=== PATIENT | male | born 1975 | race Caucasian/White ===

== ENCOUNTER 2018-08-17 16:30 | Emergency (ER) | payer OTHER ==
[2018-08-17 17:05] LABS: Basophils % 1.4 % (0-1.3); Eosinophils % 0.9 % (0-4.4); Lymphocytes % 31.4 % (15.3-44.8); MPV 8.4 fL (7.6-11.3); Monocytes % 6.3 % (3.3-12.3); RBC Red Blood Cell Count 5.35 M/uL (4.33-5.43)
[2018-08-17 17:09] LABS: Protime INR 0.97
[2018-08-17] MEDS ORDERED: ONDANSETRON 4 MG (ODT) TAB ONE (17:13)
[2018-08-17] MEDS ORDERED: ACETAMINOPHEN 500 MG TAB ONE (17:13)
[2018-08-17] MEDS ORDERED: ONDANSETRON 4 MG/2 ML VIAL ONE (17:33)
[2018-08-17] MEDS ORDERED: MECLIZINE HCL 12.5 MG TAB ONE (17:33)
[2018-08-17 17:36] LABS: Magnesium 2.3 mg/dL (1.8-2.4)
[2018-08-17 17:50] LABS: Potassium 2.9 mmol/L (3.5-5.1)
[2018-08-17 17:55] LABS: Blood Morphology Comment NOT SEEN (NOT SEEN); Platelet Estimate ADEQ
--- NOTE | 2018-08-17 18:03 | RAD REPORT ---
EXAM DESCRIPTION: RAD - Chest Single View - 08/17/2018 5:34 pm CLINICAL HISTORY: Dyspnea COMPARISON: None. TECHNIQUE: AP portable chest image was obtained 1730 hours . FINDINGS: No focal lung parenchymal process. Interstitial markings are minimally prominent believed to be baseline. No failure or volume overload. Heart and vasculature are normal. No measurable pleura l effusion and no pneumothorax. No acute bony abnormality seen. No acute aortic findings suspected. IMPRESSION: No acute cardiopulmonary process.
[2018-08-17] MEDS ORDERED: POTASSIUM 25 MEQ EFFERV TAB ONE (18:29)
[2018-08-17] MEDS ORDERED: NS KCL 20MEQ 1,000 ML IV ONE (18:30)
--- NOTE | 2018-08-17 19:36 | EDPHYS ---
Physician Documentation [facility] Name: David Moore Age: 43 yrs Sex: Male : 1975 Arrival Date: 08/17/2018 Time: 16:32 Bed 4 Private MD: ED Physician Mata Cassidy HPI: 08/17 17:15 This 43 yrs old Male presents to ER via Wheelchair with complaints of jr8 Dizziness, Nausea. 17:15 The patient presents with dizziness. Onset: The symptoms/episode began/occurred jr8 acutely, today. Context: occurred at an unknown location, occurred while the patient was standing. Modifying factors: The symptoms are alleviated by nothing, the symptoms are aggravated by changing position. Associated signs and symptoms: Pertinent positives: nausea, vomiting. Severity of symptoms: At their worst the symptoms were moderate in the emergency department the symptoms are unchanged. Patient's baseline: Neuro: alert and fully oriented, Motor: no deficits, Ambulation: walks without assistance, Speech: normal. The patient has not experienced similar symptoms in the past. The patient has been recently seen by a physician:. Patient stated that he was recently put on zithromax for inner ear infection along with prednisone. Stated that he had sudden onset dizziness followed by n/v today. Denies any other symptoms at this time . Historical: - Allergies: 16:40 No Known Allergies; aa5 - Home Meds: 16:40 Valtrex Oral [Active]; aa5 - PMHx: 16:40 Herpes; aa5 - PSHx: 16:40 None; aa5 - Immunization history:: Adult Immunizations up to date. - Ebola Screening: : No symptoms or risks identified at this time. - Social history:: Smoking status: Smoking status: Patient/guardian denies using tobacco. ROS: 17:15 Eyes: Negative for injury, pain, redness, and discharge, ENT: Negative for injury, jr8 pain, and discharge, Neck: Negative for injury, pain, and swelling, Cardiovascular: Negative for chest pain, palpitations, and edema, Respiratory: Negative for shortness of breath, cough, wheezing, and pleuritic chest pain, Back: Negative for injury and pain, MS/Extremity: Negative for injury and deformity, Skin: Negative for injury, rash, and discoloration. 17:15 Abdomen/GI: Positive for nausea and vomiting, Negative for abdominal pain, diarrhea, constipation, abdominal cramps, abdominal distension, anorexia, dysphagia, hematemesis, black/tarry stool, rectal pain, rectal bleeding, bowel incontinence, flatulence. 17:15 Neuro: Positive for dizziness. Exam: 17:15 Eyes: Pupils equal round and reactive to light, extra-ocular motions intact. Lids and jr8 lashes normal. Conjunctiva and sclera are non-icteric and not injected. Cornea within normal limits. Periorbital areas with no swelling, redness, or edema. ENT: Nares patent. No nasal discharge, no septal abnormalities noted. Tympanic membranes are normal and external auditory canals are clear. Oropharynx with no redness, swelling, or masses, exudates, or evidence of obstruction, uvula midline. Mucous membranes moist. Neck: Trachea midline, no thyromegaly or masses palpated, and no cervical lymphadenopathy. Supple, full range of motion without nuchal rigidity, or vertebral point tenderness. No Meningismus. Cardiovascular: Regular rate and rhythm with a normal S1 and S2. No gallops, murmurs, or rubs. Normal PMI, no JVD. No pulse deficits. Respiratory: Lungs have equal breath sounds bilaterally, clear to auscultation and percussion. No rales, rhonchi or wheezes noted. No increased work of breathing, no retractions or nasal flaring. Abdomen/GI: Soft, non-tender, with normal bowel sounds. No distension or tympany. No guarding or rebound. No evidence of tenderness throughout. Back: No spinal tenderness. No costovertebral tenderness. Full range of motion. Skin: Warm, dry with normal turgor. Normal color with no rashes, no lesions, and no evidence of cellulitis. MS/ Extremity: Pulses equal, no cyanosis. Neurovascular intact. Full, normal range of motion. Neuro: Awake and alert, GCS 15, oriented to person, place, time, and situation. Cranial nerves II-XII grossly intact. Motor strength 5/5 in all extremities. Sensory grossly intact. Cerebellar exam normal. Normal gait. Vital Signs: 16:40 BP 156 / 90; Pulse 77; Resp 18; Temp 97.5(O); Pulse Ox 100% on R/A; Weight 95.25 kg; lp1 Height 6 ft. 0 in. (182.88 cm); Pain 0/10; 17:10 BP 153 / 99; Pulse 66; Resp 16 S; Pulse Ox 98% on R/A; Pain 0/10; aa5 18:30 BP 142 / 94; Pulse 68; Resp 16 S; Pulse Ox 100% on R/A; Pain 0/10; aa5 19:08 BP 154 / 98; Pulse 70; Resp 16; Pulse Ox 100% ; Pain 0/10; tl1 20:21 BP 131 / 93; Pulse 71; Resp 17; Temp 97.8; Pulse Ox 99% ; Pain 0/10; tl1 16:40 Body Mass Index 28.48 (95.25 kg, 182.88 cm) lp1 16:40 Carlyle (FACES) lp1 MDM: 16:41 Patient medically screened. 8 19:35 Data reviewed: vital signs, nurses notes, lab test result(s), EKG, radiologic studies, jr8 plain films. Data interpreted: Pulse oximetry: on room air is 100 %. Interpretation: normal. Counseling: I had a detailed discussion with the patient and/or guardian regarding: the historical points, exam findings, and any diagnostic results supporting the discharge/admit diagnosis, lab results, radiology results, the need for outpatient follow up, a family practitioner, to return to the emergency department if symptoms worsen or persist or if there are any questions or concerns that arise at home. Response to treatment: the patient's symptoms have markedly improved after treatment, patient is well hydrated. 08/17 16:45 Order name: PT-INR [facility] 08/17 16:45 Order name: Basic Metabolic Panel [facility] 08/17 16:45 Order name: CBC with Diff [facility] 08/17 16:45 Order name: Magnesium [facility] 08/17 17:18 Order name: CBC with Automated Diff; Complete Time: 18:04 EDMS 08/17 17:18 Order name: Protime (+INR); Complete Time: 17:24 EDMS 08/17 17:17 Order name: XRAY Chest (1 view) [facility] 08/17 17:50 Order name: Basic Metabolic Panel; Complete Time: 17:52 EDMS 08/17 17:50 Order name: Magnesium; Complete Time: 17:52 EDMS 08/17 17:56 Order name: Manual Differential; Complete Time: 18:04 EDMS 08/17 18:04 Order name: RAD; Complete Time: 18:15 EDMS 08/17 16:45 Order name: EKG; Complete Time: 16:46 [facility] 08/17 16:45 Order name: Cardiac monitoring; Complete Time: 16:53 8 08/17 16:45 Order name: EKG - Nurse/Tech; Complete Time: 16:53 8 08/17 16:45 Order name: IV Saline Lock; Complete Time: 16:53 [facility] 08/17 16:45 Order name: Labs collected and sent; Complete Time: 16:53 8 08/17 16:45 Order name: O2 Per Protocol; Complete Time: 16:53 8 08/17 16:45 Order name: O2 Sat Monitoring; Complete Time: 16:53 Administered Medications: 17:10 Drug: Meclizine 25 mg Route: PO; aa5 18:15 Follow up: Response: No adverse reaction aa5 17:10 Drug: Zofran 4 mg Route: IVP; Site: left antecubital; aa5 17:15 Follow up: Response: No adverse reaction aa5 17:27 Not Given (Physician Discretion): Valium 2 mg IVP once aa5 18:15 Drug: Potassium Chloride 40 mEq Route: PO; aa5 20:23 Follow up: Response: No adverse reaction; No change in condition tl1 18:20 Drug: NS 0.9% with KCl 20 mEq/L 1000 ml Route: IV; Rate: 500 ml/hr; Site: left aa5 antecubital; 20:23 Follow up: IV Status: Completed infusion; IV Intake: 1000ml tl1 Disposition: 08/17/18 19:36 Discharged to Home. Impression: Hypokalemia, Vertigo. - Condition is Stable. - Discharge Instructions: Potassium Content of Foods, Vertigo, Hypokalemia. - Prescriptions for Zofran ODT 4 mg Oral tablet,disintegrating - place 1 tablet by TRANSLINGUAL route every 6 hours As needed; 12 tablet. Meclizine 25 mg Oral Tablet - take 1 tablet by ORAL route every 8 hours As needed; 30 tablet. - Medication Reconciliation Form, Thank You Letter, Antibiotic Education, Prescription Opioid Use form. - Follow up: Private Physician; When: 2 - 3 days; Reason: Recheck today's complaints, Continuance of care, Re-evaluation by your physician. - Problem is new. - Symptoms have improved. Addendum: 08/20/2018 06:59 Co-signature as Attending Physician, Mata Cassidy MD. r n Signatures: Dispatcher [employer] EDMN Mata Cassidy MD MD rn Calderon, Audri RN RN aa5 Foster Oscar PA PA jr8 Eulalia Salazar RN RN tl1 Corrections: (The following items were deleted from the chart) 08/17 20:33 19:36 08/17/2018 19:36 Discharged to Home. Impression: Hypokalemia; Vertigo. Condition tl1 is Stable. Forms are Medication Reconciliation Form, Thank You Letter, Antibiotic Education, Prescription Opioid Use. Follow up: Private Physician; When: 2 - 3 days; Reason: Recheck today's complaints, Continuance of care, Re-evaluation by your physician. Problem is new. Symptoms have improved. jr8
--- NOTE | 2018-08-17 19:36 | ER ---
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 Transition of care: patient was not received from another setting of care. Onset of symptoms was August 17, 2018. Risk Assessment: Do you want to hurt yourself or someone else? Patient reports no desire to harm self or others. Initial Sepsis Screen: Does the patient meet any 2 criteria? No. Patient's initial sepsis screen is negative. Does the patient have a suspected source of infection? No. Patient's initial sepsis screen is negative. Care prior to arrival: None. 16:38 Method Of Arrival: Wheelchair lp1 16:38 Acuity: TARIQ 3 lp1 Triage Assessment: 16:38 General: Appears ill. Derm: Skin is pale. lp1 Historical: - Allergies: 16:40 No Known Allergies; aa5 - Home Meds: 16:40 Valtrex Oral [Active]; aa5 - PMHx: 16:40 Herpes; aa5 - PSHx: 16:40 None; aa5 - Immunization history:: Adult Immunizations up to date. - Ebola Screening: : No symptoms or risks identified at this time. - Social history:: Smoking status: Smoking status: Patient/guardian denies using tobacco. Screenin:40 Abuse screen: Denies threats or abuse. Nutritional screening: No deficits noted. aa5 Tuberculosis screening: No symptoms or risk factors identified. Fall Risk None identified. Assessment: 16:40 General: Appears comfortable, Behavior is calm, cooperative. Pain: Denies pain. Neuro: aa5 Level of Consciousness is awake, alert, obeys commands, Oriented to person, place, time, situation, Home Advisor are equal bilaterally Moves all extremities. Speech is normal, Facial symmetry appears normal, Pupils are PERRLA, Reports dizziness. Cardiovascular: Heart tones S1 S2 present Rhythm is regular. Respiratory: Airway is patent Respiratory effort is even, unlabored, Respiratory pattern is regular, symmetrical, Denies cough. GI: Abdomen is round Bowel sounds present X 4 quads. Abd is soft and non tender X 4 quads. 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 : No signs and/or symptoms were reported regarding the genitourinary system. EENT: Reports recent ear infection and is currently taking Z-pack . Derm: Skin is pink, warm \\T\\ dry. Musculoskeletal: Range of motion: intact in all extremities. 17:10 Reassessment: Patient is alert, oriented x 3, equal unlabored respirations, skin aa5 warm/dry/pink. Patient denies pain at this time. Pt's O2 sat decreases to 89% RA when pt is asleep, PA was notified. Pt currently sitting up in bed, awake, O2 sat 100% RA, will continue to monitor. . 18:30 Reassessment: Patient is alert, oriented x 3, equal unlabored respirations, skin aa5 warm/dry/pink. Patient denies pain at this time. Patient states feeling better. Reports dizziness has improved. . 19:37 Reassessment: Patient and/or family updated on plan of care and expected duration. Pain tl1 level reassessed. Patient is alert, oriented x 3, equal unlabored respirations, skin warm/dry/pink. Patient denies pain at this time. Patient states feeling better. Patient states symptoms have improved. General: Appears in no apparent distress. comfortable, Behavior is calm, cooperative, appropriate for age. Pain: Denies pain. Neuro: Level of Consciousness is awake, alert, obeys commands, Oriented to person, place, time, situation, Home Advisor are equal bilaterally Moves all extremities. Denies dizziness. Cardiovascular: Denies chest pain. Respiratory: Airway is patent Respiratory effort is even, unlabored, Respiratory pattern is regular, symmetrical. GI: Abdomen is non-distended, Bowel sounds present X 4 quads. Abd is soft and non tender X 4 quads. Patient currently denies nausea. : No signs and/or symptoms were reported regarding the genitourinary system. EENT: No signs and/or symptoms were reported regarding the EENT system. Derm: No signs and/or symptoms reported regarding the dermatologic system. Vital Signs: 16:40 BP 156 / 90; Pulse 77; Resp 18; Temp 97.5(O); Pulse Ox 100% on R/A; Weight 95.25 kg; lp1 Height 6 ft. 0 in. (182.88 cm); Pain 0/10; 17:10 BP 153 / 99; Pulse 66; Resp 16 S; Pulse Ox 98% on R/A; Pain 0/10; aa5 18:30 BP 142 / 94; Pulse 68; Resp 16 S; Pulse Ox 100% on R/A; Pain 0/10; aa5 19:08 BP 154 / 98; Pulse 70; Resp 16; Pulse Ox 100% ; Pain 0/10; tl1 20:21 BP 131 / 93; Pulse 71; Resp 17; Temp 97.8; Pulse Ox 99% ; Pain 0/10; tl1 16:40 Body Mass Index 28.48 (95.25 kg, 182.88 cm) lp1 16:40 Carlyle (FACES) lp1 ED Course: 16:32 Patient arrived in ED. mr 16:40 Triage completed. lp1 16:40 Arm band placed on left wrist. lp1 16:41 Foster Oscar PA is PHCP. jr8 16:41 Mata Cassidy MD is Attending Physician. jr8 16:45 Initial lab(s) drawn, by ut, sent to lab. Inserted saline lock: 20 gauge in left aa5 antecubital area, using aseptic technique. Blood collected. 16:52 EKG done, by ED staff, reviewed by Foster SAXENA. Patient maintains SpO2 saturation jp3 greater than 95% on room air. 16:53 Barbara Lim RN is Primary Nurse. aa5 16:53 Placed in gown. Bed in low position. Call light in reach. Side rails up X 1. Side rails jp3 up X2. Warm blanket given. Verbal reassurance given. equipment monitor phototypesetting on. Pulse ox on. NIBP on. 16:53 PT-INR Sent. jp3 16:53 Basic Metabolic Panel Sent. jp3 16:53 CBC with Diff Sent. jp3 16:53 Magnesium Sent. jp3 17:28 No provider procedures requiring assistance completed. aa5 18:58 Report given to OLEKSANDR Doyle. aa5 20:32 IV discontinued, intact, bleeding controlled, No redness/swelling at site. Pressure tl1 dressing applied. Administered Medications: 17:10 Drug: Meclizine 25 mg Route: PO; aa5 18:15 Follow up: Response: No adverse reaction aa5 17:10 Drug: Zofran 4 mg Route: IVP; Site: left antecubital; aa5 17:15 Follow up: Response: No adverse reaction aa5 17:27 Not Given (Physician Discretion): Valium 2 mg IVP once aa5 18:15 Drug: Potassium Chloride 40 mEq Route: PO; aa5 20:23 Follow up: Response: No adverse reaction; No change in condition tl1 18:20 Drug: NS 0.9% with KCl 20 mEq/L 1000 ml Route: IV; Rate: 500 ml/hr; Site: left aa5 antecubital; 20:23 Follow up: IV Status: Completed infusion; IV Intake: 1000ml tl1 Intake: 20:23 IV: 1000ml; Total: 1000ml. tl1 Outcome: 19:36 Discharge ordered by . jr8 20:32 Discharged to home ambulatory, with family. tl1 20:32 Condition: good 20:32 Discharge instructions given to patient, family, Instructed on discharge instructions, follow up and referral plans. medication usage, Demonstrated understanding of instructions, follow-up care, medications, Prescriptions given X 2. 20:33 Patient left the ED. tl1 Signatures: Yolie Mckeon mr LimBarbara, RN RN aa5 Bety Lala RN RN lp1 Foster Oscar PA PA jr8 Eulalia Salazar RN RN tl1 Red Martel jp3
--- NOTE | 2018-08-18 07:47 | EKG ---
Test Date: 2018-08-17 Test Time: 16:35:50 Lab Engineer: ETHAN MEASUREMENT RESULTS: Intervals: Rate: 73 CT: 166 QRSD: 100 QT: 426 QTc: 469 [place]: P: 71 CT: 166 QRS: 81 T: 15 INTERPRETIVE STATEMENTS: Normal sinus rhythm Normal ECG No previous ECG available for comparison Electronically Signed On 08-18-18 07:46:00 CDT by Dusty Bennett
== END 2018-08-17 20:33 | disposition home or self-care (01) ==
LOC: ER 16:30
DX: E87.6 Hypokalemia (principal); R42 Dizziness and giddiness
CPT/HCPCS: 36415; 71045; 80048; 83735; 85025; 85610; 93005; 96361; 96374; 99285; J2405